=== PATIENT | female | born 1990 | race Caucasian/White ===

== ENCOUNTER → 2016-06-21 | Outpatient (CLI) | payer BC ==
--- NOTE | 2016-06-21 15:02 | Diagnostic Imaging Report ---
INDICATION: Anatomic survey. COMPARISON: None available. Number: One. Presentation: Transverse with head to maternal right. Placenta: Anteriorly located and in a low-lying position approximately 2 cm above the cervical os. No evidence of placenta previa. Amniotic Fluid: NGHIA is 13.2 cm. Single largest vertical pocket is 4.4 cm. Heart Rate: 150 BPM. biometrics are symmetric. They are consistent with an estimated gestational age of 18 weeks and 1 day. Therefore, there is an estimated due date based upon this examination of November 21, 2016. Findings are consistent with clinical dating. Estimated weight is 230 g. FINDINGS: The anatomic survey is grossly unremarkable. The stomach, four-chamber heart, kidneys, bladder, three-vessel cord and the cord insertion are well seen. The intracranial structures are grossly unremarkable. The spine is not optimally evaluated secondary to lie. Grossly, it is unremarkable. The cervix measures 3.6 cm in length. IMPRESSION: 1. Single live intrauterine at approximately 18 weeks and 1 day, with an RADHA of November 21, 2016. These are consistent with clinical dates. No gross abnormalities are seen at this time. 2. Cervical length is 3.6 cm. This is borderline short. Recommend followup sonography within one month to reevaluate. Dictated by: Dictated on workstation # [id number]
== END ==
LOC: RAD 13:19
PROVIDERS: ATTEND Family Medicine
DX: Z36 Encounter for antenatal screening of mother (principal)
CPT/HCPCS: 76805

== ENCOUNTER → 2016-09-06 | Outpatient (CLI) | payer BC ==
--- NOTE | 2016-09-06 10:48 | Diagnostic Imaging Report ---
INDICATION: Check size and dates. EXAMINATION: Ultrasound 09/06/2016. Comparison is made to 06/21/2016. There is a single live intrauterine gestation currently measuring 28 weeks 3 days. This is within 5 days of the previous sonogram. The visualized anatomy grossly unremarkable. Three-vessel cord not visualized today but previously visualized per prior report. Amniotic fluid index is grossly normal. Measurements of the femur length is 26 weeks 4 days which is below the remaining measurements but could be positional. Follow up as clinically warranted. The heart rate is approximately 130 beats per minute. Fetus is currently breech in positioning. Placenta is anterior. Previous measurements of the maternal cervix were borderline shortened. Today's examination demonstrates a cervical length of approximately 4.2 cm. IMPRESSION: 1. Single live intrauterine gestation with appropriate interval growth. 2. Femur length is slightly short compared to the remaining measurements but could be positional in nature. Followup as clinically warranted. Dictated by: Dictated on workstation # [id number]
== END ==
LOC: RAD 09:23
PROVIDERS: ATTEND Family Medicine
DX: O26.843 Uterine size-date discrepancy, third trimester (principal); Z3A.28 28 weeks gestation of pregnancy
CPT/HCPCS: 76815

== ENCOUNTER 2016-09-21 20:23 | Emergency (ER) | payer BC ==
[~2016-09-21] VITALS: Ht 165.1 cm; Wt 72.4 kg
--- NOTE | 2016-09-21 20:36 | NUR ---
When I took patient to room and put patient on bed she started c/o "Abdominal pain" When asking patient to describe her abdominal pain she said, "They are sharp and my belly is tight." Patient breathing heavier like she was trying to breath through a contraction. Called Maryann and reported patient status. She instructed, "go ahead and send patient up here to OB and we will monitor patient, put her on the monitor and if she isn't in labore we will send her back to ER."
--- NOTE | 2016-09-21 20:36 | NUR ---
Patient was not seen by the ED physician. Taken up to OB for evaluation.
[2016-09-21 22:28] VITALS: BP 132/77
[2016-09-21] MEDS ORDERED: PREN1TAB79 PO (22:37)
== END 2016-09-21 21:48 | disposition admitted as inpatient to this hospital (09) ==
LOC: ED 20:24
DX: Z53.8 Procedure and treatment not carried out for other reasons (principal)

== ENCOUNTER 2016-09-21 20:42 | Outpatient (CLI) | payer BC ==
[2016-09-20 21:07] VITALS: BP 127/77
[~2016-09-21] VITALS: Ht 162.6 cm; Wt 73.0 kg
[2016-09-21 21:07] VITALS: BP 127/77
[2016-09-21] MEDS ORDERED: ONDANSETRON 2 MG/ML (Z0FRAN) 2 ML VIAL IV ONE (21:20)
[2016-09-21] MEDS ORDERED: ONDANSETRON 2 MG/ML (Z0FRAN) 2 ML VIAL ONE (21:35)
[2016-09-21 21:46] LABS: MEAN CORPUSCULAR HEMOGLOBIN 29.8 PG (26.0-34.0); MEAN CORPUSCULAR VOLUME 85 FL (80-100); MEAN PLATELET VOLUME 9.6 FL (6.0-9.5); PLATELET COUNT 252 10^3uL (150-450); WHITE BLOOD COUNT 20.18 10^3uL (4.0-11.0)
[2016-09-21 21:53] LABS: BAND NEUTROPHILS % 6 % (0-6); EOSINOPHILS % 1 % (0-4); LYMPHOCYTES # 1.6 #; MONOCYTES # 1.2 #; MONOCYTES % 6 % (3-11); RBC MORPH NORMAL (NORMAL); SEGMENTED NEUTROPHILS % 79 % (51-67); TOTAL CELLS COUNTED 100
[2016-09-21 21:55] LABS: BILIRUBIN,URINE Negative (Negative); GLUCOSE, URINE (UA) Negative (Negative); PH,URINE 7.5 (5.0 - 8.0)
[2016-09-21 21:55] LABS: ALBUMIN 4.2 g/dL (3.4-5.0); ANION GAP 18.7 MEQ/L (3-15); CALCULATED IONIZED CALCIUM 4.1 mg/dL (3.8-4.6); TOTAL PROTEIN 7.4 g/dL (6.4-8.5)
[2016-09-21 21:56] LABS: LEUKOCYTE ESTERASE ,URINE Negative (Negative); UROBILINOGEN,URINE 0.2 mg/dL (0.2-1.0)
[2016-09-21 21:58] LABS: CLARITY,URINE Slightly Cloudy; COLOR,URINE Dark Yellow
[2016-09-21 21:59] LABS: RBC,URINE None Seen /HPF; URINE CENTRIFUGED VOLUME 12 mL
[2016-09-21] MEDS ORDERED: PREN1TAB79 PO (22:37)
[2016-09-21] MEDS ORDERED: NS W/KCL 20 MEQ/L 1,000 ML IV ONE ×2 (22:40→22:50)
[2016-09-21 23:00] VITALS: BP 113/55
[2016-09-22] MEDS ORDERED: ED- ONDANSETRON ODT 4 MG (ZOFRAN) 4 TABLETS/BTL PO ONE ×2 (00:15→00:18)
== END 2016-09-22 00:35 | disposition home or self-care (01) ==
LOC: EUOP 20:42 → OB 20:42 → EUOP 09-22 00:35
PROVIDERS: ATTEND Family Medicine
DX: R11.2 Nausea with vomiting, unspecified (principal); Z3A.31 31 weeks gestation of pregnancy
CPT/HCPCS: 36415; 80053; 81003; 81015; 85025; 96361; 96365; 96375; 99204; J2405; J7030